=== PATIENT | male | born 1950 | race Caucasian/White ===

== ENCOUNTER 2017-09-30 09:58 | Outpatient (CLI) | payer MEDICARE, BC ==
--- NOTE | 2017-09-30 11:57 | RAD ---
TWO VIEWS CHEST: Comparison: 06-24-03 History: Chest pain. FINDINGS: Two views of the abdomen shows nonspecific, nonobstructed bowel gas pattern. There is no evidence of consolidation, mass, or pleural effusion. Surgical clips are seen in the upper abdomen. IMPRESSION: No evidence of acute cardiopulmonary disease. POS: [facility]
== END 2017-09-30 09:59 | disposition home or self-care (01) ==
LOC: RAD-FRANK 09:58
PROVIDERS: ATTEND Nurse Practitioner Family
DX: R07.9 Chest pain, unspecified (principal)
CPT/HCPCS: 71046

== ENCOUNTER 2017-10-13 12:50 | Observation (INO) | payer MEDICARE, BC ==
[2017-10-13 13:31] LABS: #Basophils 0.1 thou/uL (0.0-0.2); #Eosinphils 0.2 thou/uL (0.0-0.7); #Lymphocytes 2.2 thou/uL (1.20-3.40); #Monocytes 0.5 thou/uL (0.11-0.59); %Basophils 1.1 % (0.0-1.0); %Eosinophils 2.2 % (0.0-10.0); %Lymphocytes 31.4 % (21.0-51.0); %Monocytes 6.7 % (0.0-10.0); %Neutrophils 58.6 % (42.0-75.0); Hemoglobin 14.6 g/dL (14.0-18.0); Mean Corpuscular HGB CONC 33.4 g/dL (32.0-36.0); Mean Corpuscular Hemoglobin 30.9 pg (27.0-31.0); Mean Corpuscular Volume 92.3 fl (80.0-94.0); Mean Platelet Volume 6.8 fL (7.4-10.4); Platelet Count 184 thou/uL (130-400); RBC Distribution Width 12.5 % (11.5-14.5); Red Blood Cell (RBC) Count 4.73 mill/uL (4.70-6.10); White Blood Cell (WBC) Count 6.9 thou/uL (4.8-10.8)
[2017-10-13 14:00] LABS: ALT (SGPT) 15 U/L (8-55); AST (SGOT) 16 U/L (5-34); Albumin 3.9 g/dL (3.4-4.8); Alkaline Phosphatase 83 U/L (40-150); Anion Gap 10 mmol/L (10-20); BUN (Urea Nitrogen) 15 mg/dL (8.4-25.7); Bilirubin, Total 0.9 mg/dL (0.2-1.2); CK (CPK) 56 U/L (30-200); Calc. Creatinine Clearance 0 mL/min (70-130); Calcium 8.8 mg/dL (7.8-10.44); Carbon Dioxide 25 mmol/L (23-31); Chloride 108 mmol/L (98-107); Estimated GFR-MDRD Greater than 90; Globulin 2.3 g/dL (2.4-3.5); Glucose 90 mg/dL (80-115); Lipase 7 U/L (8-78); Potassium 3.8 mmol/L (3.5-5.1); Protein, Total 6.2 g/dL (5.8-8.1); Sodium 139 mmol/L (136-145)
[2017-10-13 14:03] LABS: CKMB 1.7 ng/mL (0-6.6); Troponin I Less than 0.010 ng/mL (< 0.028)
--- NOTE | 2017-10-13 14:17 | RAD ---
PORTABLE CHEST 1 VIEW: Date: 10/13/17 Time: 1325 hours HISTORY: Chest pain. FINDINGS: The heart size is borderline. The lungs are well expanded without focal areas of consolidation, pneum othorax, or pleural effusions. There is no evidence of timothy pulmonary edema. IMPRESSION: No radiographic evidence of acute cardiopulmonary process. POS: [facility]
[2017-10-13] MEDS ORDERED: Acetaminophen 325 MG TAB PO PRN (17:27)
[2017-10-13] MEDS ORDERED: HYDROcodone/Acetaminophen 10/325 mg Tablet PO PRN (17:27)
[2017-10-13] MEDS ORDERED: Ondansetron ODT 4 MG TAB PO PRN (17:27)
[2017-10-13] MEDS ORDERED: HYDROcodone/Acetaminophen 5/325 mg Tablet PO PRN (17:27)
[2017-10-13 17:31] VITALS: BMI 25.3
--- NOTE | 2017-10-13 17:50 | HP ---
DATE OF ADMISSION: 10/13/2017 PRIMARY CARE PHYSICIAN: Ms. Elinor Riley, nurse practitioner. B2B OUTSIDE SALES REPRESENTATIVE: Aime Wang M.D. CHIEF COMPLAINT: Chest pain. HISTORY OF PRESENT ILLNESS: Mr. 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 The patient started having chest pain about 2 weeks ago while he was digging post holes in his yard. He describes as an 8-10/10 pressure sensation in the center of his chest that does not necessarily hurt, worse with inspiration, but does make it harder to breathe. It goes away after several minutes he thinks maybe 5 with rest and recurs when he starts doing activity again. He saw Dr. Wang about a week ago for this. An echocardiogram was done, but he does not know the results yet. Stress test was planned, but there have been no open available slots to have it done prior to next week. Today, he had another episode of chest pain. He rated 8.5/10, took a sublingual nitro like he normally does, which seemed to resolve and took a full dose aspirin and came to the emergency department for evaluation. Here, biomarkers were negative, labs were normal, EKG was normal. We were called for admission. He has had no PND or orthopnea. No dyspnea on exertion. No nausea, vomiting, or diaphoresis. No cold sweats. No fevers or chills. He has no cough, hemoptysis or GI bleeding. PAST MEDICAL HISTORY: 1. Testicular cancer, status post surgery and chemotherapy. 2. Probable obstructive sleep apnea: states he snores when he sleeps and actually has multiple episodes of apnea waking up and is unaware. 3. Probable BPH. The patient describes hesitancy, dribbling, but no urgency. PAST SURGICAL HISTORY: 1. Right orchiectomy. 2. Inguinal hernia. 3. Abdominal hematoma removal. HOME MEDICATIONS: 1. Aspirin daily. 2. Nitroglycerin sublingual as needed. ALLERGIES: IODINE causes itching. No rash. No difficulty breathing. This was during a CT scan for his cancer workup. FAMILY HISTORY: Significant for brother with an PA, but not before the age of 60. His mom at old age with CHF. His dad at old age with COPD. SOCIAL HISTORY: Negative for habits x3. He does smoke tobacco about a 14-pack- year history, but quit many years ago. He is , monogamous. His accompanies him. No recent travel. REVIEW OF SYSTEMS: A 10-point review of systems was performed negative for all systems except as stated per HPI. PHYSICAL EXAMINATION: VITAL SIGNS: Temperature 97.7, pulse 57, blood pressure 141/84, respiratory rate 19, satting 97% on room air. GENERAL: He is awake. He is alert. He is oriented x3, well-developed, well- nourished white male who appears to be in zero distress. HEENT: Normocephalic, atraumatic. Pupils equal and reactive bilaterally, mucous membranes are moist. He has no visible lesions. No thrush. NECK: Supple. He has no lymphadenopathy, no JVD, no thyromegaly. There were carotid upstrokes without bruits. LUNGS: Clear to auscultation bilaterally. No wheezes, no rales, no rhonchi. CARDIOVASCULAR: Normal S1, S2. No S3 or S4. No audible murmurs. ABDOMEN: Soft. It is nontender, nondistended, no masses, no organomegaly. No rebound, rigidity or guarding. EXTREMITIES: No cyanosis, no clubbing, and no edema. He has 2+ dorsalis pedis and posterior tibial pulses. SKIN: Warm, moist and well perfused. He has no rashes or lesions. NEUROLOGIC: Shows cranial nerves II through XII are grossly intact. He has normal speech pattern, 5/5 strength, and no focal deficits. MUSCULOSKELETAL: Normal to inspection. The large joints were uninflamed. There are no palpable effusions. LABORATORY EVALUATION: Sodium 139, potassium 3.8, chloride 108, bicarbonate 25 , BUN 15, creatinine 0.75 and glucose of 90 with calcium 8.0. Liver functions completely within normal limits. CBC showed white count 6.9 with a normal differential. Hemoglobin 14.6, hematocrit 43.7, and platelet count 184,000. Total CK was 56, CK-MB 1.7, troponin I was less than 0.010. BNP was normal at 73.5. IMAGING: Chest x-ray showed no acute cardiopulmonary process. EKG showed normal EKG, normal sinus rhythm with slightly sinus bradycardia. ASSESSMENT AND PLAN: 1. Chest pain, certainly has no risk factors for coronary artery disease that we know of but did have typical anginal symptoms. We will get serial cardiac biomarkers, we will check an a.m. fasting lipid profile, and we will watch him on the playground monitor overnight. The patient was placed in observation on the observation unit with telemetry monitoring. We will hold beta tenzin due to bradycardia, place him on nitro paste, oxygen continuous, and aspirin tonight and we will notify Dr. Wang of his admission. If his biomarkers are normal, we will get a nuclear stress test in the morning and if normal, we will followup on Dr. Wang's recommendations. 2. If stress test is normal, then we will subsequently let him go home with outpatient followup. 3. History of testicular cancer, in remission. 4. Probable sleep apnea. 4. Probable benign prostatic hypertrophy, not on medications, but is not interested in starting right now. NICK
[2017-10-13] MEDS ORDERED: Enoxaparin Sodium 30 MG/0.3 ML SYRINGE SC SCH (18:00)
[2017-10-13] MEDS: Nitroglycerin 2% Ointment 1 INCH/1 GM Packet TOP SCH (18:12)
[2017-10-13 19:34] LABS: CKMB 1.7 ng/mL (0-6.6); Troponin I Less than 0.010 ng/mL (< 0.028)
[2017-10-13] MEDS: Famotidine 20 MG TAB PO SCH (21:02)
[2017-10-14] MEDS: Nitroglycerin 2% Ointment 1 INCH/1 GM Packet TOP SCH ×4 (00:34→23:15)
[2017-10-14 02:10] LABS: CKMB 1.3 ng/mL (0-6.6); Troponin I 0.015 ng/mL (< 0.028)
[2017-10-14 06:08] LABS: Cardiac Risk 4.3 (Less than 4.5)
--- NOTE | 2017-10-14 07:41 | CON ---
DATE OF CONSULTATION: 10/14/2017 REASON FOR CONSULTATION: Recurrent chest pain. HISTORY OF PRESENT ILLNESS: Mr. Amaya is a very pleasant 59-year-old gentleman who was seen and eval uated in the office. He was self-referred. He appeared to have chest pain noted at both rest and st ress. He was scheduled for a noninvasive stress study. He had recurrent episode that lasted 10 macy erna and decided to proceed to the emergency room. He states his symptoms will occur both at rest and stress, but mainly with exertion. CK and troponins have been negative. PAST SURGICAL HISTORY: Testicular cancer, hernia repair, abdominal surgery. ALLERGIES: IODINE. FAMILY HISTORY: Positive for CAD. CURRENT MEDICATIONS: P.r.n. nitroglycerin. REVIEW OF SYSTEMS: Ten-point review of systems is reviewed as above, otherwise negative. PHYSICAL EXAMINATION: VITAL SIGNS: Blood pressure 129/78, pulse 52, temperature 98.1. GENERAL: Patient is a pleasant male who is in no acute distress. The patient appears his stated age. NEUROLOGIC: The patient is alert and oriented times 3 with no focal neurologic deficits. HEENT: Sclerae without icterus. Mouth has moist mucous membranes with normal pallor. NECK: No JVD. Carotid upstroke brisk. No bruits bilaterally. LUNGS: Clear to auscultation with unlabored respirations. BACK: No scoliosis or kyphosis. CARDIAC: Regular rate and rhythm with normal S1 and S2. No S3 or S4 noted. No significant rubs, mur murs, thrills, or gallops noted throughout the precordium. PMI is not displaced. There is no parast ernal heave. ABDOMEN: Soft, nontender, nondistended. No peritoneal signs present. No hepatosplenomegaly. No abn ormal striae. EXTREMITIES: 2+ femoral and 2+ dorsalis pedis pulses. No cyanosis, clubbing, or edema. SKIN: No gross abnormalities. LABS: CK and troponin negative. EKG shows normal sinus rhythm. IMPRESSION: Chest pain. RECOMMENDATIONS: Mr. Amaya does not have any significant risk factors for early coronary disease, al though his symptoms suggest angina. His CKs and troponins are negative. His EKG is nonspecific. At this point, I recommend a noninvasive stress study to assess for any ischemia. Further recommendati on pending the above.
[2017-10-14] MEDS: Aspirin 325 MG TAB PO SCH (08:10)
[2017-10-14] MEDS: Famotidine 20 MG TAB PO SCH ×2 (08:10→23:25)
[2017-10-14] MEDS ORDERED: Enoxaparin Sodium 30 MG/0.3 ML SYRINGE SC SCH (09:00)
--- NOTE | 2017-10-14 11:09 | NM ---
CARDIAC SPECT: CLINICAL HISTORY: 67-year-old male with chest pain. Family history of coronary artery disease. TECHNIQUE: A myocardial perfusion scan was performed using the single isotope one day protocol with technetium-9 9m sestamibi. 11 mCi were injected intravenously for the rest exam followed by 30 mCi for the stress exam. Exercise stress was monitored and interpreted by Shola Ferguson NP. FINDINGS: Homogeneous tracer distribution is seen in the myocardial segments on the rest images. The stress alen ges demonstrate decreased tracer localization in the distal anteroseptal wall. GATED SPECT LVEF: 57%. WALL MOTION EXAM: Normal. IMPRESSION: Completely Reversible ischemia in the distal anteroseptal wall. POS: [facility]
--- NOTE | 2017-10-14 15:52 | PDOC.PN ---
- Subjective Encounter Start Date: 10/14/17 Encounter Start Time: 12:30 Pt without event overnight, labs negaive, went to Nuc stress test. Test result siwth janes septal (distally) reversible ischemia. Discussed with Dr Wang , will cath 10/15/ no F/C, no N/V/D/C. Feed today, NPo after midnight 10 point ROS performed and neg for all systems except as per HPI - Objective Resuscitation Status: Resuscitation Status FULL:Full Resuscitation MAR Reviewed: Yes Vital Signs & Weight: Vital Signs (12 hours) Temp Pulse Resp BP Pulse Ox 10/14/17 12:00 97.9 F 56 L 16 112/73 96 10/14/17 08:00 97.8 F 54 L 16 10/14/17 07:48 97.8 F 54 L 16 136/84 95 Weight Weight 181 lb 11.2 oz I&O: 10/13/17 10/14/17 10/15/17 06:59 06:59 06:59 Intake Total 10 Output Total 525 Balance -515 Result Diagrams: 10/13/17 13:06 10/13/17 13:06 Radiology Reviewed by me: Yes EKG Reviewed by me: Yes Phys Exam - Physical Examination Constitutional: NAD HEENT: PERRLA, moist MMs, sclera anicteric, oral pharynx no lesions Neck: no nodes, no JVD, supple, full ROM Respiratory: no wheezing, no rales, no rhonchi, clear to auscultation bilateral Cardiovascular: RRR, no significant murmur, no rub Gastrointestinal: soft, non-tender, no distention, positive bowel sounds Musculoskeletal: no edema, pulses present Neurological: non-focal, normal sensation, moves all 4 limbs Lymphatic: no nodes Psychiatric: normal affect, A&O x 3 Skin: no rash, normal turgor, cap refill <2 seconds Dx/Plan (1) Stable angina Code(s): I20.8 - OTHER FORMS OF ANGINA PECTORIS Status: Acute Comment: neg biomarkers, positive stress. PTCA with poss PCI tomorrow. Probably home tomorrow (2) CAD (coronary artery disease), [place] coronary artery Code(s): I25.10 - ATHSCL HEART DISEASE OF [place] CORONARY ARTERY W/O ANG PCTRS Status: Acute Qualifiers: [place] vs. transplanted heart: [place] heart Associated angina: with stable angina Qualified Code(s): I25.118 - Atherosclerotic heart disease of [place] coronary artery with other forms of angina pectoris (3) HLD (hyperlipidemia) Code(s): E78.5 - HYPERLIPIDEMIA, UNSPECIFIED Status: Chronic Qualifiers: Hyperlipidemia type: pure hyperglyceridemia Qualified Code(s): E78.1 - Pure hyperglyceridemia (4) BPH (benign prostatic hyperplasia) Code(s): N40.0 - BENIGN PROSTATIC HYPERPLASIA WITHOUT LOWER URINRY TRACT SYMP Status: Acute Qualifiers: Lower urinary tract symptom presence: symptoms present Lower urinary tract symptom detail: nocturia Qualified Code(s): N40.1 - Benign prostatic hyperplasia with lower urinary tract symptoms; R35.1 - Nocturia; R35.1 - Nocturia (5) NILAY (obstructive sleep apnea) Code(s): G47.33 - OBSTRUCTIVE SLEEP APNEA (ADULT) (PEDIATRIC) Status: Chronic Comment: not formally diagnosed, btu presumed based on history (6) History of testicular cancer Code(s): Z85.47 - PERSONAL HISTORY OF MALIGNANT NEOPLASM OF TESTIS Status: Resolved - Plan cont current plan of care * .
[2017-10-14] MEDS ORDERED: Montelukast Sodium 10 mg Tablet PO SCH (18:00)
[2017-10-14] MEDS ORDERED: Sodium Chloride 0.9% 1,000 ML IV SCH (18:00)
[2017-10-14] MEDS ORDERED: Famotidine 20 MG TAB PO SCH (18:00)
[2017-10-14] MEDS ORDERED: Communication Order-Pharmacy FS SCH (18:00)
[2017-10-14] MEDS: diphenhydrAMINE 25 MG CAP PO SCH ×2 (18:22→23:25)
[2017-10-14] MEDS: predniSONE 20 MG TAB PO SCH ×2 (18:23→23:24)
[2017-10-15] MEDS: diphenhydrAMINE 25 MG CAP PO SCH (05:36)
[2017-10-15] MEDS: predniSONE 20 MG TAB PO SCH (05:36)
[2017-10-15] MEDS: Aspirin 325 MG TAB PO SCH (05:37)
[2017-10-15] MEDS: Famotidine 20 MG TAB PO SCH ×2 (05:37→23:08)
[2017-10-15] MEDS ORDERED: Sodium Chloride 0.9% 1,000 ML IV SCH ×2 (06:00→09:15)
[2017-10-15] MEDS ORDERED: Lidocaine 1% (PF) 30 ML VIAL ONE (06:35)
--- NOTE | 2017-10-15 07:19 | PRG ---
DATE OF SERVICE: 10/14/2017 Mr. Amaya's study did suggest ischemia to the anteroseptal region. Given his good history consistent with angina, I would recommend coronary angiogram plus PCI. I discussed the procedure in full detai l with Mr. Amaya and his was present during the discussion. Risks included, not limited to the following: , stroke, ME, need for emergency surgery, loss of limb, bleeding, and infection, as well as a reaction to the dye causing kidney failure and needing long-term dialysis. I also discusse d the risks of PCI to include all of the above including coronary dissection and perforation in addit ion to acute stent thrombosis and restenosis. All questions about the procedure were answered. Give n the above, the patient agreed to proceed with coronary angiography and possible PCI. I also discus sed drug-coated versus nondrug-coated stent placement. There are no contraindications and proceed if needed. The patient does have a dye allergy, and we will premedicate with Benadryl, prednisone, Sin gulair, and Zantac. Further recommendations pending the above.
[2017-10-15] MEDS ORDERED: EPINEPHrine 1 MG/ML AMP ONE (07:22)
[2017-10-15] MEDS ORDERED: Iopamidol 370 76% 50 ML VIAL FS ONE (07:23)
[2017-10-15] MEDS ORDERED: Iopamidol 370 76% 100 ML VIAL ONE (07:23)
[2017-10-15] MEDS ORDERED: Hydrocortisone Sod Succ/PF 100 mg/2 ml Vial ONE (07:24)
[2017-10-15] MEDS ORDERED: diphenhydrAMINE 50 MG/ML VIAL ONE (07:24)
[2017-10-15] MEDS ORDERED: Famotidine/PF 20 mg/2ml Vial ONE (07:24)
[2017-10-15] MEDS ORDERED: Midazolam HCl 2 mg/2 ml Vial ONE (07:25)
[2017-10-15] MEDS ORDERED: Fentanyl 100 MCG/2 ML VIAL ONE (07:25)
[2017-10-15] MEDS ORDERED: Nitroglycerin 100MG/250ML BOT 250 ML ONE (07:40)
[2017-10-15] MEDS ORDERED: Adenosine 6 MG/2 ML VIAL ONE (07:40)
[2017-10-15] MEDS ORDERED: Verapamil 5 MG/2 ML VIAL ONE (07:40)
[2017-10-15] MEDS ORDERED: Heparin 10,000 UNITS/1 ML VIAL ONE (07:40)
[2017-10-15] MEDS ORDERED: TICAGRELOR 90 MG TABLET ONE (08:10)
[2017-10-15] MEDS: Nitroglycerin 2% Ointment 1 INCH/1 GM Packet TOP SCH ×2 (12:49→19:15)
--- NOTE | 2017-10-15 20:33 | CCL ---
ADDENDUM: Mr. Amaya recently underwent coronary angiography and was found to have severe stenosis of the proxim al portion of the LAD. He had collaterals noted from the right coronary artery. I did ask Dr. Severino Dias to help with the assessment of Mr. Amaya. I was concerned about the left main disease. I have discussed with Dr. Dias that it did not appear the left main was significantl y as previously noted. After discussion, it was decided to proceed with a stent placement to the pro ximal portion to the LAD. I did IVUS the ostium of the left main artery. The wire was placed in the circumflex artery. This d id not appear to be flow limiting or significant. I then proceeded with stent placement. After ____ _ the left main of the LAD, this went well. Stent placement was performed. IVUS was then performed of the ostium of the circumflex for assessment with no significant plaque redistribution. IVUS then performed of the LAD after post-dilatation with excellent apposition. POS: [facility]
[2017-10-15] MEDS: TICAGRELOR 90 MG TABLET PO SCH (21:55)
[2017-10-16] MEDS: Nitroglycerin 2% Ointment 1 INCH/1 GM Packet TOP SCH ×2 (02:35→10:38)
[2017-10-16 05:12] LABS: #Eosinphils 0.1 thou/uL (0.0-0.7); #Lymphocytes 2.5 thou/uL (1.20-3.40); #Monocytes 0.8 thou/uL (0.11-0.59); #Neutrophils 9.8 thou/uL (1.40-6.50); %Basophils 0.4 % (0.0-1.0); %Eosinophils 0.5 % (0.0-10.0); %Lymphocytes 19.3 % (21.0-51.0); %Monocytes 5.8 % (0.0-10.0); %Neutrophils 74.1 % (42.0-75.0); Hemoglobin 14.4 g/dL (14.0-18.0); Mean Corpuscular HGB CONC 33.3 g/dL (32.0-36.0); Mean Corpuscular Hemoglobin 30.7 pg (27.0-31.0); Mean Corpuscular Volume 92.3 fl (80.0-94.0); Mean Platelet Volume 6.7 fL (7.4-10.4); Platelet Count 170 thou/uL (130-400); RBC Distribution Width 12.5 % (11.5-14.5); Red Blood Cell (RBC) Count 4.68 mill/uL (4.70-6.10); White Blood Cell (WBC) Count 13.2 thou/uL (4.8-10.8)
[2017-10-16 05:26] LABS: Albumin 3.5 g/dL (3.4-4.8); Anion Gap 10 mmol/L (10-20); BUN (Urea Nitrogen) 17 mg/dL (8.4-25.7); Bilirubin, Total 1.1 mg/dL (0.2-1.2); Calc. Creatinine Clearance 98 mL/min (70-130); Calcium 8.7 mg/dL (7.8-10.44); Carbon Dioxide 24 mmol/L (23-31); Chloride 108 mmol/L (98-107); Estimated GFR-MDRD Greater than 90; Glucose 102 mg/dL (80-115); Potassium 4.1 mmol/L (3.5-5.1); Protein, Total 5.8 g/dL (5.8-8.1); Sodium 138 mmol/L (136-145)
[2017-10-16 05:27] LABS: ALT (SGPT) 13 U/L (8-55); AST (SGOT) 12 U/L (5-34); Alkaline Phosphatase 76 U/L (40-150); Globulin 2.3 g/dL (2.4-3.5)
[2017-10-16 07:43] VITALS: TEMP 98.2
[2017-10-16] MEDS: Famotidine 20 MG TAB PO SCH (10:37)
[2017-10-16] MEDS: TICAGRELOR 90 MG TABLET PO SCH (10:37)
[2017-10-16 11:41] VITALS: BP 134/79
--- NOTE | 2017-10-16 17:40 | EKG ---
Test Reason : POST STENT Blood Pressure : / mmHG Vent. Rate : 053 BPM Atrial Rate : 053 BPM P-R Int : 164 ms QRS Dur : 094 ms QT Int : 474 ms P-R-T Axes : 054 021 046 degrees QTc Int : 444 ms Sinus bradycardia Otherwise normal ECG No previous ECGs available Confirmed by DR. Shola FOREMAN ([id number]) on 10/16/2017 5:40:42 PM Referred By: ALEJANDRA Confirmed By:DR. Shola FOREMAN
--- NOTE | 2017-10-16 17:45 | EKG ---
Test Reason : Blood Pressure : / mmHG Vent. Rate : 052 BPM Atrial Rate : 052 BPM P-R Int : 158 ms QRS Dur : 092 ms QT Int : 454 ms P-R-T Axes : 050 012 033 degrees QTc Int : 422 ms Sinus bradycardia Otherwise normal ECG When compared with ECG of 15-OCT-2017 09:39, (Unconfirmed) No significant change was found Confirmed by DR. Shola FOREMAN ([id number]) on 10/16/2017 5:44:40 PM Referred By: ALEJANDRA Confirmed By:DR. Shola FOREMAN
--- NOTE | 2017-10-16 18:15 | PRG ---
DATE OF SERVICE: 10/16/2017 SUBJECTIVE: Mr. Amaya is doing very well. No chest pain or pressure noted. He states he feels much big difference after recently receiving a stent placement to the LAD. PHYSICAL EXAMINATION: GENERAL: Patient is a pleasant male, who is in no acute distress. The patient appears his stated ag e. VITAL SIGNS: Blood pressure 120/70, pulse 80, and respiration 20. NEUROLOGIC: The patient is alert and oriented times 3 with no focal neurologic deficits. HEENT: Sclerae without icterus. Mouth has moist mucous membranes with normal pallor. NECK: No JVD. Carotid upstroke brisk. No bruits bilaterally. LUNGS: Clear to auscultation with unlabored respirations. BACK: No scoliosis or kyphosis. CARDIAC: Regular rate and rhythm with normal S1 and S2. No S3 or S4 noted. No significant rubs, murmurs, thrills, or gallops noted throughout the precordium. PMI is not displa august. There is no parasternal heave. ABDOMEN: Soft, nontender, nondistended. No peritoneal signs present. No hepatosplenomegaly. No ab normal striae. EXTREMITIES: 2+ femoral and 2+ dorsalis pedis pulses. No cyanosis, clubbing, or edema. SKIN: No gross abnormalities. IMPRESSION: Chronic stable angina, failing medical therapy. RECOMMENDATIONS: Mr. Amaya is doing well. We have called in Brilinta. We would continue current me dical therapy with aspirin 81 q.a.m. and Brilinta. Follow up with me in 1 week.
--- NOTE | 2017-10-17 14:49 | DIS ---
DATE OF ADMISSION: 10/13/2017 DATE OF DISCHARGE: 10/16/2017 DISCHARGE DIAGNOSES: 1. Chest pain. 2. Coronary artery disease, status post stent x1. 3. Testicular cancer. 4. Obstructive sleep apnea. HOSPITAL COURSE: Patient is a very pleasant 67-year-old man who initially presented to the hospital with complaints of chest pain. The patient was seen by Cardiology and underwent initially a stress t est, which indicated completely reversible ischemia in the distal anteroseptal wall. He underwent a cardiac catheterization on 10/15/2017 with a stent to his proximal portion of his LAD. The patient w as sent home with aspirin and Brilinta. He will follow up with Cardiology in 1-2 weeks. DISCHARGE MEDICATIONS: The patient will go home with aspirin 81 mg daily, fenofibrate 48 mg p.o. tim ly, and Brilinta 90 mg p.o. b.i.d. in addition to his home medications. PHYSICAL EXAMINATION: VITAL SIGNS: Temperature 98.2, heart rate of 52, blood pressure 129/73, 96% on room air. GENERAL: The patient is awake, alert, oriented x3, does not appear in distress. CARDIOVASCULAR: S1, S2 present. No murmurs, rubs or gallop. RESPIRATORY: Lungs were clear to auscultation. No rhonchi or wheezes noted. EXTREMITIES: Right groin dressing intact with good pedal pulses. No edema noted.
--- NOTE | 2017-11-13 14:38 | EKG ---
Test Reason : Blood Pressure : / mmHG Vent. Rate : 054 BPM Atrial Rate : 054 BPM P-R Int : 156 ms QRS Dur : 092 ms QT Int : 444 ms P-R-T Axes : 031 -06 018 degrees QTc Int : 421 ms Sinus bradycardia Otherwise normal ECG Confirmed by MAURISIO LEIGH, BENNY Johnson ([id number]), story editor NOAM WHITE ([id number]) on 11/13/2017 2:38:10 PM Referred By: Confirmed By:BENNY FORDE MD
--- NOTE | 2017-11-18 13:36 | STRESS ---
Acquisition Time: 2017-10-14 08:49:38 Total Exercise Time: 00:05:58 Test Indications: CHEST PAIN Medications: Protocol: DYAN Max HR: 129 BPM 84% of Pred: 152 BPM Max BP: 158/090 mmHG Max Work Load: 7.0 METS RESTING ECG: SINUS BRADYCARDIA AT 47 BPM SYMPTOMS: 8/10 CHEST PAIN AT PEAK EXERTION; RESOLVED IN RECOVERY NORMAL BP RESPONSE ECTOPY: RARE TO OCCASIONAL PVC'S AT PEAK EXERTION ECG STRESS: 2.5-3.[address] AND HORIZONTAL ST DEPRESSION IN INFEROLATERAL LEADS INTERPRETATION: POSITIVE GXT/AWAIT NUCLEAR IMAGES FOR DEFINITIVE DIAGNOSIS Confirmed by DOE LEACH ([id number]) on 11/18/2017 1:35:49 PM Referred By: MD Maxi ANTONIO Confirmed By:DOE LEACH
== END 2017-10-16 14:25 | disposition home or self-care (01) ==
LOC: ERS 12:50 → 2SW 15:37 → 2NO 10-15 09:50 → 2SW 10-15 10:01
PROVIDERS: ADMIT Internal Medicine Infectious Disease; ATTEND Internal Medicine Infectious Disease
DX: I25.119 Atherosclerotic heart disease of native coronary artery with unspecified angina pectoris (principal); G47.33 Obstructive sleep apnea (adult) (pediatric); Z79.82 Long term (current) use of aspirin; Z79.899 Other long term (current) drug therapy; Z91.041 Radiographic dye allergy status; Z90.79 Acquired absence of other genital organ(s); Z98.890 Other specified postprocedural states; Z85.47 Personal history of malignant neoplasm of testis; Z92.3 Personal history of irradiation; Z92.21 Personal history of antineoplastic chemotherapy; Z87.891 Personal history of nicotine dependence
CPT/HCPCS: 71045; 76942; 78452; 80053 ×2; 80061; 82550; 82553 ×3; 83690; 83880; 84484 ×3; 85025 ×2; 85347 ×3; 92978; 93005 ×3; 93017; 93458; 93798 ×2; 96372; 99285; A9500; C1725; C1753; C1769 ×2; C1874; C9600; G0378 ×2; 36415; 92928; 93010; 99152; 99153; A4216; J0153; J0171; J1200; J1644; J1650; J1720; J2001; J2250; J3010; J7506; S0028

== ENCOUNTER 2022-01-25 08:52 | Outpatient (CLI) | payer MEDICARE, BC ==
[2022-01-25 10:42] LABS: #Eosinphils 0.2 10x3/uL (0.0-0.5); #Monocytes 0.4 10x3/uL (0.0-1.1); #Neutrophils 3.4 10x3/uL (1.5-8.4); %Basophils 0.5 % (0.0-2.0); %Lymphocytes 29.3 % (18.0-47.0); %Monocytes 6.9 % (0.0-10.0); %Neutrophils 60.1 % (40.0-75.0); Hemoglobin 13.1 g/dL (13.5-17.5); Mean Corpuscular HGB CONC 33.2 g/dL (32.0-36.0); Mean Corpuscular Hemoglobin 31.5 pg (27.0-33.0); Mean Corpuscular Volume 94.7 fl (81.2-95.1); Mean Platelet Volume 9.9 fl (7.4-10.4); Platelet Count 187 10x3/uL (150-450); RBC Distribution Width 13.6 % (11.5-14.5); Red Blood Cell (RBC) Count 4.16 10x6/uL (4.32-5.72); White Blood Cell (WBC) Count 5.7 10x3/uL (3.5-10.5)
[2022-01-25 10:52] LABS: INR-International Normal Ratio 1.3; PTT 39.3 sec (22.0-33.0); Prothrombin Time 13.8 sec (9.5-12.1)
[2022-01-25 10:56] LABS: ALT (SGPT) 17 U/L (8-55); AST (SGOT) 17 U/L (5-34); Alkaline Phosphatase 81 U/L (40-110); Anion Gap 13 mmol/L (10-20); BUN (Urea Nitrogen) 23 mg/dL (8.4-25.7); Bilirubin, Total 0.9 mg/dL (0.2-1.2); Calc. Creatinine Clearance 0 mL/min (70-130); Calcium 9.1 mg/dL (7.8-10.44); Carbon Dioxide 24 mmol/L (23-31); Chloride 109 mmol/L (98-107); Globulin 2.2 g/dL (2.4-3.5); Glucose 72 mg/dL (83-110); Potassium 4.6 mmol/L (3.5-5.1); Protein, Total 6.2 g/dL (5.8-8.1); Sodium 141 mmol/L (136-145)
== END 2022-01-25 08:53 | disposition home or self-care (01) ==
LOC: LABBT 08:52
PROVIDERS: ATTEND Internal Medicine Cardiovascular Disease
DX: Z01.818 Encounter for other preprocedural examination (principal); Z20.822 Contact with and (suspected) exposure to COVID-19
CPT/HCPCS: 80053; 85025; 85610; 85730; 93005; U0003; U0005; 93010

== ENCOUNTER → 2022-01-30 | Day surgery (SDC) | payer MEDICARE, BC ==
[2022-01-25 12:23] VITALS: BMI 25.8
[~2022-01-30] MED LIST: Heparin 10,000 UNITS/ 10 ML VIAL ONE; Heparin 25,000 units/D5W 500 ML ONE; Isoproterenol 0.2 MG/1 ML AMP ONE; Protamine Sulfate 50 MG/5 ML VIAL ONE; fentaNYL Citrate/PF 100 MCG/2 ML SYRINGE ONE
== END | disposition home or self-care (01) ==
LOC: SDC 06:01
PROVIDERS: ATTEND Internal Medicine Cardiovascular Disease
PROC: B244ZZ3 Ultrasonography of Right Heart, Intravascular (ICD-10-PCS; principal; 2022-01-30)
PROC: 02583ZZ Destruction of Conduction Mechanism, Percutaneous Approach (ICD-10-PCS; 2022-01-30)
PROC: 02K83ZZ Map Conduction Mechanism, Percutaneous Approach (ICD-10-PCS; 2022-01-30)
PROC: 4A023FZ Measurement of Cardiac Rhythm, Percutaneous Approach (ICD-10-PCS; 2022-01-30)
PROC: 4A0234Z Measurement of Cardiac Electrical Activity, Percutaneous Approach (ICD-10-PCS; 2022-01-30)
DX: I48.19 Other persistent atrial fibrillation (principal); I51.7 Cardiomegaly; I48.92 Unspecified atrial flutter; I25.10 Atherosclerotic heart disease of native coronary artery without angina pectoris; I49.02 Ventricular flutter; I42.9 Cardiomyopathy, unspecified; E78.5 Hyperlipidemia, unspecified; I25.2 Old myocardial infarction; G47.30 Sleep apnea, unspecified; Z86.73 Personal history of transient ischemic attack (TIA), and cerebral infarction without residual deficits; Z79.01 Long term (current) use of anticoagulants; Z79.82 Long term (current) use of aspirin; Z88.8 Allergy status to other drugs, medicaments and biological substances; Z91.041 Radiographic dye allergy status; Z95.5 Presence of coronary angioplasty implant and graft
CPT/HCPCS: 85347 ×2; 93005; 93613; 93622; 93623; 93656; 93657; 93662; C1732 ×2; C1759; C1760; J1644; J2720

== ENCOUNTER 2023-06-02 09:38 | Outpatient (CLI) | payer MEDICARE, BC | END 2023-06-02 09:39 | disposition home or self-care (01) | LOC: RAD-FRANK 09:38 | PROVIDERS: ATTEND Nurse Practitioner Family | DX: R05.1 Acute cough (principal) | CPT/HCPCS: 71046 ==

== ENCOUNTER 2025-06-08 13:31 | Observation (INO) | payer MEDICARE, BC ==
[2025-06-08 14:30] LABS: #Basophils Less than 0.03 10x3/uL (0.0-0.2); #Eosinophils 0.06 10x3/uL (0.0-0.7); #Monocytes 0.71 10x3/uL (0.11-0.59); #Neutrophils 10.78 10x3/uL (1.40-6.50); %Basophils 0.1 % (0.0-1.0); %Eosinophils 0.5 % (0.0-10.0); %Lymphocytes 3.0 % (21.0-51.0); %Monocytes 5.9 % (0.0-10.0); %Neutrophils 89.3 % (42.0-75.0); Hematocrit 31.3 % (42.0-52.0); Hemoglobin 9.9 g/dL (14.0-18.0); Mean Corpuscular Hemoglobin 31.5 pg (27.0-31.0); Mean Corpuscular Volume 99.7 fL (78.0-98.0); Platelet Count 151 10x3/uL (130-400); Red Blood Cell (RBC) Count 3.14 mill/uL (4.70-6.10); White Blood Cell (WBC) Count 12.07 10x3/uL (4.8-10.8)
[2025-06-08 14:34] LABS: Bacteria/HPF None Seen HPF (None Seen); CAUTI Indications for Culture Fever or rigors; Glucose, Urine (Dipstick) Normal (Negative); Leukocyte Negative Leu/uL (Negative); Protein, Urine (Dipstick) Negative (Neg-Trace); RBC/HPF 21-50 HPF (0-3); Specific Gravity, Urine 1.013 (1.002-1.036); Urine Culture Reflex No No; WBC/HPF None Seen HPF (0-3)
[2025-06-08 14:44] LABS: INR-International Normal Ratio 1.5; PTT 27.8 sec (22.9-36.1); Prothrombin Time 18.0 sec (12.0-14.7)
[2025-06-08 15:02] LABS: ALT (SGPT) 50 U/L (Less than 45); AST (SGOT) 23 U/L (11-34); Albumin 2.6 g/dL (3.1-4.5); Alkaline Phosphatase 77 U/L (40-110); Anion Gap 12 mmol/L (10-20); BUN (Urea Nitrogen) 19 mg/dL (8.4-25.7); Bilirubin, Total 0.9 mg/dL (0.3-1.2); Calc. Creatinine Clearance 0 mL/min (70-130); Calcium 8.1 mg/dL (7.8-10.44); Carbon Dioxide 25 mmol/L (23-31); Chloride 105 mmol/L (98-107); Globulin 2.5 g/dL (2.4-3.5); Glucose 125 mg/dL (83-110); Potassium 3.1 mmol/L (3.5-5.1); Sodium 139 mmol/L (136-145)
[2025-06-08] MEDS ORDERED: Cefepime 2 GM VIAL ONE (15:12)
[2025-06-08] MEDS ORDERED: LevoFLOXacin 750 mg/D5W 150 ml Premix Bag ONE (15:12)
[2025-06-08] MEDS ORDERED: Ondansetron PF 4 MG/2 ML Vial IVP PRN (16:06)
[2025-06-08] MEDS ORDERED: Acetaminophen 325 MG TAB PO PRN (16:06)
[2025-06-08] MEDS ORDERED: Senokot S 8.6-50 MG TAB PO PRN (16:06)
[2025-06-08] MEDS ORDERED: Melatonin 3 MG TAB PO PRN (16:06)
[2025-06-08] MEDS ORDERED: VANCOMYCIN 2 GRAM/400 ML BAG ONE (16:13)
[2025-06-08] MEDS: Famotidine 20 MG TAB PO SCH (21:21)
[2025-06-08] MEDS: Aspirin Chewable 81 MG TAB PO SCH (21:21)
[2025-06-08] MEDS: Apixaban 5 MG TAB PO SCH (21:23)
[2025-06-09 06:29] VITALS: BMI 25.4
[2025-06-09 06:54] LABS: #Basophils Less than 0.03 10x3/uL (0.0-0.2); #Eosinophils 0.03 10x3/uL (0.0-0.7); #Monocytes 0.67 10x3/uL (0.11-0.59); #Neutrophils 7.62 10x3/uL (1.40-6.50); %Basophils 0.1 % (0.0-1.0); %Eosinophils 0.3 % (0.0-10.0); %Lymphocytes 8.9 % (21.0-51.0); %Monocytes 7.3 % (0.0-10.0); %Neutrophils 82.4 % (42.0-75.0); Hematocrit 29.3 % (42.0-52.0); Hemoglobin 9.1 g/dL (14.0-18.0); Mean Corpuscular Hemoglobin 31.3 pg (27.0-31.0); Mean Corpuscular Volume 100.7 fL (78.0-98.0); Platelet Count 154 10x3/uL (130-400); Red Blood Cell (RBC) Count 2.91 mill/uL (4.70-6.10); White Blood Cell (WBC) Count 9.24 10x3/uL (4.8-10.8)
[2025-06-09 07:09] LABS: Anion Gap 9 mmol/L (10-20); BUN (Urea Nitrogen) 18 mg/dL (8.4-25.7); Calc. Creatinine Clearance 104 mL/min (70-130); Calcium 8.2 mg/dL (7.8-10.44); Carbon Dioxide 28 mmol/L (23-31); Chloride 105 mmol/L (98-107); Glucose 128 mg/dL (83-110); Potassium 3.3 mmol/L (3.5-5.1); Sodium 139 mmol/L (136-145)
[2025-06-09 08:10] VITALS: TEMP 97.6
[2025-06-09] MEDS: predniSONE 20 MG TAB PO SCH (09:16)
[2025-06-09 12:03] VITALS: BP 128/73
[2025-06-09] MEDS ORDERED: LevoFLOXacin 500 mg/D5W 500 MG in Premix 1 BAG IVPB SCH (16:00)
[2025-06-10] MEDS ORDERED: PNEUMOC 20-VAL CONJ-DIP CRM/PF 0.5 ML SYRINGE IM ONE (09:00)
== END 2025-06-09 12:40 | disposition home or self-care (01) ==
LOC: ERS 13:31 → MSONC 16:13
PROVIDERS: ADMIT Internal Medicine; ATTEND Internal Medicine
DX: A41.9 Sepsis, unspecified organism (principal); J18.9 Pneumonia, unspecified organism; I48.91 Unspecified atrial fibrillation; I25.10 Atherosclerotic heart disease of native coronary artery without angina pectoris; C34.90 Malignant neoplasm of unspecified part of unspecified bronchus or lung; Z95.5 Presence of coronary angioplasty implant and graft; Z86.711 Personal history of pulmonary embolism; Z98.890 Other specified postprocedural states; Z91.041 Radiographic dye allergy status; Z88.8 Allergy status to other drugs, medicaments and biological substances; Z79.82 Long term (current) use of aspirin; Z79.01 Long term (current) use of anticoagulants; Z79.899 Other long term (current) drug therapy
CPT/HCPCS: 71045; 80048; 80053; 81001; 83605; 84484; 85025 ×2; 85610; 85730; 87040; 93005; 94760; J0692; J1956; J3375; 36415; 96365; 96366; 96367; 96368; J7512

== ENCOUNTER 2025-07-05 12:23 | Outpatient (CLI) | payer MEDICARE, BC | END 2025-07-05 12:24 | disposition home or self-care (01) | LOC: CT 12:23 | PROVIDERS: ATTEND Internal Medicine Hematology & Oncology | DX: C34.31 Malignant neoplasm of lower lobe, right bronchus or lung (principal); R91.8 Other nonspecific abnormal finding of lung field; J18.1 Lobar pneumonia, unspecified organism; J90 Pleural effusion, not elsewhere classified; Z79.899 Other long term (current) drug therapy | CPT/HCPCS: 71260 ==